=== PATIENT | male | born 1950 | race Caucasian/White ===

== ENCOUNTER → 2024-09-09 | Outpatient (CLI) | payer MEDICARE, SELFPAY ==
--- NOTE | 2024-09-09 12:56 | NEURO ---
NCS and/or EMG Patient Report Ordering Doctor: Addi Garcia DATE OF SERVICE: 09/09/24 Oc presents for electrodiagnostic testing of the lower limbs. He reports numbness and tingling in both feet. Electrodiagnostic findings: Right peroneal motor nerve demonstrates normal distal latency with reduced amplitude and reduced conduction velocity. Left peroneal motor nerve demonstrates normal distal latency with reduced amplitude and reduced conduction velocity. Tibial motor response could not be obtained bilaterally. Prolonged right and left peroneal F?wave. Prolonged H?reflex bilaterally. Sensory responses were not obtainable. Needle EMG testing was performed the lower limbs. Motor units of 1+ amplitude and duration noted bilaterally in the gastrocnemius. 1+ fibrillations are noted in left tibialis anterior. No denervation noted in lumbar paraspinals. Electrodiagnostic impression: This is an abnormal study in the lower limbs 1. 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 2. No electrodiagnostic evidence is noted for lumbosacral radiculopathy. Multi Select Codes Neurology Neurology Interp Codes: 17486-56 Musc test done w/n test comp (interp) (2) and 86818-06 Nrv cndj test 9-10 studies (interp)
== END | disposition home or self-care (01) ==
LOC: PSN 06:42
PROVIDERS: PCP Family Medicine; Referring Provider Family Medicine; Visit Provider Family Medicine
DX: R20.0 Anesthesia of skin (principal); R20.2 Paresthesia of skin
CPT/HCPCS: 95886; 95911

== ENCOUNTER 2025-01-13 13:53 | Emergency (ER) | payer MEDICARE, SELFPAY ==
[2025-01-13 13:53] VITALS: BP 151/77; PULSE 81; RESP 16; TEMP 36.7; O2SAT 98
--- NOTE | 2025-01-13 14:09 | EX.ED.DYSGE1 ---
HPI History of Present Illness Chief Complaint: Abd Pain PFSH PFSH Allergy/AdvReac Type Severity Reaction Status Date / Time loratadine (From Claritin) Allergy ITCING Verified 01/13/25 14:01 tramadol Allergy Abd Verified 01/13/25 14:01 cramps/diarrhea acetaminophen (From Tylenol) AdvReac OTHER Verified 01/13/25 14:01 aspartame AdvReac Other Verified 01/13/25 14:01 Beef Containing Products AdvReac Abd Verified 01/13/25 14:01 cramps/diarrhea quick AdvReac Diarrhea Verified 01/13/25 14:01 chlordiazepoxide (From AdvReac UNKNOWN Verified 01/13/25 14:01 Librium) corn syrup AdvReac UNKNOWN Verified 01/13/25 14:01 egg (eggs) AdvReac Abd Verified 01/13/25 14:01 cramps/diarrhea ibuprofen AdvReac Abd Verified 01/13/25 14:01 cramps/diarrhea losartan AdvReac Abd Verified 01/13/25 14:01 cramps/diarrhea naproxen AdvReac Abd Verified 01/13/25 14:01 cramps/diarrhea Penicillins (PCN) AdvReac UNKNOWN Verified 01/13/25 14:01 Pork/Porcine Containing AdvReac Abd Verified 01/13/25 14:01 Products cramps/diarrhea Social History Smoking Status: Never smoker EXAM Physical Exam Const Vital Signs: 01/13/25 13:53 01/13/25 15:53 Temperature 98.1 F Temperature Source Temporal Pulse Rate 81 77 Respiratory Rate 16 19 H Blood Pressure 151/77 H 131/59 H Blood Pressure Mean 101 83 Pulse Ox 98 98 Oxygen Delivery Method Room Air Room Air MDM MDM MDM Narrative Medical decision making narrative: HISTORY OF PRESENT ILLNESS: 74-year-old male presents with concern for abdominal pain bloating and flatulence. He states he has had 3 weeks of pain. Pain was worse 4 days ago. States he has abdominal pain bloating increased burping and flatulence. He notes nausea but no vomiting. Last bowel movement was this morning. Denies melena hematochezia. Notes history of 3 hernia surgeries. Denies urinary complaint such as urgency, frequency or dysuria. Denies any fevers. No chest pain or shortness of breath. REVIEW OF SYSTEMS: Pertinent positives: Abdominal pain, bloating and flatulence, nausea Pertinent negatives: Chest pain, shortness of breath, fever, vomiting, urinary symptoms PHYSICAL EXAM: Nursing triage notes reviewed, Vital signs reviewed Constitutional: please see the [facility] HENT: MMM Eyes: Pupils equal round and reactive to light, Extraocular muscles intact Neck: No stridor, no JVD, full neck ROM Lungs: Clear to auscultation, No wheezing or rales. No increased work of breathing, no conversational dyspnea, no accessory muscle use, no nasal flaring. No respiratory distress noted Heart: Regular rate and rhythm, No murmurs, No rubs and No gallops, 2+ distal pulses (radial, femoral, posterior tibial) in all extremities Abdomen: Soft, there is no tenderness, slight distention, rigidity, rebound or guarding, no obvious peritoneal signs, no palpable pulsatile abdominal masses, no auscultated abdominal bruit : No CVAT Extremities: No edema Neuro: No new focal neurological deficits, cranial nerves II through XII intact, 5/5 strength in all present extremities. Intact sensation to light touch in all present extremities, 2+ reflexes bilateral patella tendons. Skin: No rash or lesions noted MEDICAL DECISION MAKING: Chief Complaint: Abdominal pain, bloating and flatulence External records reviewed: Reviewed prior imaging studies Factors affecting care: none recorded in the chart. Per patient's report IBS Social determinants of health: none History obtained from others: none Consults: none [facility] Narrative: The patient was initially hemodynamically stable, afebrile, nontoxic-appearing. Abdominal exam overall benign however slightly distended consistent with patient's history of increased flatulence and burping. I considered the following differential diagnosis: AAA, small bowel obstruction, abdominal perforation, appendicitis, pancreatitis, hepatobiliary pathology (acute cholecystitis), mesenteric ischemia, pathology (ie nephrolithiasis, pyelonephritis). I obtained a broad lab and imaging workup to further elucidate the etiology of the patient's complaints. Initially treated the patient with 500 cc of normal saline, 4 mg IV morphine, 4 mg IV Zofran, 20 mg IM Bentyl ALL IMAGES (IF OBTAINED) HAVE BEEN PERSONALLY REVIEWED AND INTERPRETED BY MYSELF. CBC without leukocytosis, severe anemia, no thrombocytopenia. BMP with mild hyponatremia, h hypokalemia LFTs show no evidence of hepatobiliary pathology. Lipase is wnl indicating no pancreatic inflammation. Urinalysis shows no evidence of urinary inflammation suggestive of UTI CT scan abdomen pelvis shows no evidence of obvious acute abdominal surgical pathology Lactate is wnl indicating no end-organ hypoperfusion and/or hypoxia. The synthesis of the patient's history, physical exam, labs images suggest no acute life-limiting etiology. Unclear etiology however prompt GI and PCP follow-up was recommended. Strict return precautions were discussed. The patient electrolyte abnormalities are mild and not require ED treatment. Encouraged a more well-rounded diet including fresh fruits and vegetables as well as usual [place] diet to balance out any sodium issues. The patient and/or family, caregivers express understanding. The patient and/or family, caregivers agrees with the plan. Shared decision making: I will have a discussion with the patient and or visitors regarding risk/benefits of further testing or admission. They will be made aware of of the risk/benefits inherent in this decision they will be given the opportunity to voice understanding. Total critical care time today provided was at least 0 minutes. This excludes separately billable procedures. Critical care time (if documented) is secondary to the patient having high probability of clinically significant/life threatening deterioration in the patient's condition which required my urgent intervention. Impression: 1. Abdominal pain 2. Hyponatremia 3. Hypokalemia Dispo: Discharge home This note was generated with Freebeep[employer] dictation software. It may contain incorrect words, spelling, and punctuation that were not noted in review of the chart prior to signing. Lab Data Labs: Laboratory Results - last 24 hr 01/13/25 01/13/25 14:32 15:04 WBC 6.4 RBC 4.72 Hgb 14.4 Hct 39.8 L MCV 84.3 MCH 30.5 MCHC 36.2 H RDW Std Deviation 41.0 RDW Coeff of Fely 13.2 Plt Count 219 MPV 10.6 Immature Gran % (Auto) 0.300 Neut % (Auto) 68.1 Lymph % (Auto) 18.4 L [place] % (Auto) 9.9 Eos % (Auto) 2.2 Baso % (Auto) 1.1 H Absolute Neuts (auto) 4.3 Absolute Lymphs (auto) 1.17 Nucleated RBC % 0 Sodium 132 L Potassium 3.1 L Chloride 95 L Carbon Dioxide 25.6 Anion Gap 11 BUN 14 Creatinine 1.09 Estim Creat Clear Calc 71.93 Est GFR (MDRD) Non-Af 72 BUN/Creatinine Ratio 12.8 Glucose 89 Lactic Acid < 1.0 Calcium 8.7 Total Bilirubin 1.06 AST 26 ALT 13 Alkaline Phosphatase 91 Total Protein 6.5 Albumin 4.1 Globulin 2.3 Albumin/Globulin Ratio 1.8 Lipase 72 Urine Color Yellow Urine Clarity Clear Urine pH 7.0 Ur Specific [place] 1.005 Urine Protein 15 H Urine Glucose (UA) Normal Urine Ketones 5 H Urine Occult Blood 10 H Urine Nitrite Negative Urine Bilirubin Negative Urine Urobilinogen Normal Ur Leukocyte Esterase Negative Urine RBC 0 SEEN Urine WBC 0 SEEN Ur Squamous Epith Cells 0 SEEN Urine Bacteria 0 SEEN Urine Mucus 0 SEEN Radiography Diagnostic Testing: Clinical Impression(s) from Imaging Studies Abdomen/Pelvis CT 01/13/25 14:45 IMPRESSION: No acute process in the abdomen or pelvis. Colonic diverticulosis without diverticulitis. Reading [facility] Discharge Plan Triage Chief Complaint: Abd Pain ED Provider: Ruben Helms Dx/Rx/DC Orders Primary Care Provider: Addi Garcia Referrals: Addi Garcia MD [Primary Care Provider] - Print Language: Citizen [place]
[2025-01-13] MEDS: Morphine 4 MG/ML Syringe IV (14:29)
[2025-01-13] MEDS: Ondansetron 4 MG/2 ML Vial IV (14:29)
[2025-01-13] MEDS: 0.9% Normal Saline (500mL Bag) 500 ML 999 ML IV (14:30)
[2025-01-13] MEDS: Dicyclomine 20 MG/2 ML Vial IM (14:31)
--- NOTE | 2025-01-13 14:45 | CT_ITS ---
EXAM: ABDOMEN/PELVIS W IV CONT ONLY CLINICAL HISTORY: ABDOMINAL PAIN, BLOATING COMPARISON: None. TECHNIQUE: Helical CT images of the abdomen and pelvis were performed utilizing routine protocol with IV contrastintravenous contrast material. Multiplanar reformations were obtained. oral contrast Dose reduction techniques were used including intermediate exposure control (AEC),iterative reconstruction technique, and/or mA and/or KV dose adjustments based on patient's size. FINDINGS: Lung bases: Linear opacities in the lung bases, compatible with atelectasis and scarring. Liver: Mild diffuse hepatic steatosis. Scattered low-attenuation lesions, likely simple cysts. The largest in the right hepatic lobe measures 14 mm. Bile ducts: No intrahepatic ductal dilation. Gallbladder: No calcified gallstones. No gallbladder wall thickening or pericholecystic fluid. Spleen: Within normal limits. Pancreas: Within normal limits Adrenal glands: Within normal limits Kidneys/Ureters: Symmetric bilateral renal enhancement. No hydronephrosis or renal calculi. No hydroureter. Bladder: Within normal limits Reproductive: Mild prostatomegaly. Lymph nodes: No adenopathy. Bowel: Small hiatal hernia. No bowel dilation or wall thickening. Colonic diverticulosis without diverticulitis. Moderate colonic stool. Appendix is not visualized. Peritoneum: No free air, ascites, or fluid collection. Retroperitoneum: Within normal limits. Abdominal wall: Within normal limits. Bones: No significant multilevel spondylosis. Maintained vertebral body heights. CT/Abdomen/Pelvis W IV Cont ONLY IMPRESSION: No acute process in the abdomen or pelvis. Colonic diverticulosis without diverticulitis. Reading Location: [facility]
[2025-01-13 14:51] LABS: Absolute Lymphocyte Count 1.17 X10^3/uL (0.83-4.51); Absolute Neutrophil Count 4.3 X10^3/uL (2.0-7.7); Basophil# 0.07 X10^3/uL; Basophil% 1.1 % (0-1); Eosinophil# 0.14 X10^3/uL; Eosinophils% 2.2 % (0-5); Hematocrit 39.8 % (40-54); Hemoglobin 14.4 g/dL (13.0-16.5); Lymphocyte # 1.17 X10^3/ul (0.83-4.51); Lymphocyte % 18.4 % (19-41); Mean Corp Hgb Conc 36.2 g/dL (32-36); Mean Corpuscular Hgb 30.5 pg (27.0-32.0); Mean Corpuscular Volume 84.3 fL (80-94); Mean Platelet Vol. 10.6 fl (6.2-12.0); Monocyte# 0.63 X10^3/uL; Monocyte% 9.9 % (0-10); NRBC Flagged by Analyzer 0 % (0-5); Neutrophil # 4.34 X10^3/uL (2.7-7.7); Neutrophil % 68.1 % (47-70); Platelet Count 219 K/mm3 (150-450); RBC Distribution Width CV 13.2 % (11.6-14.6); Red Blood Count 4.72 M/mm3 (4.6-6.2); White Blood Count 6.4 K/mm3 (4.4-11.0)
[2025-01-13 15:12] LABS: Bacteria 0 SEEN /hpf (None Seen); Mucous, Urine 0 SEEN /hpf (<or=2+); Squamous Epithelial Cells - UA 0 SEEN /hpf (0-5); White Blood Cells 0 SEEN /hpf (0-5)
[2025-01-13 15:18] LABS: Color, Urine Yellow (Yellow); Glucose, Dipstick Normal (Normal); Ketone-Dipstick 5 mg/dl (Negative); Leukocyte Esterase-Dipstick Negative /ul (Negative); Nitrite-Dipstick Negative (Negative); Occult Blood-Urine 10 /ul (Negative); Protein-Dipstick 15 mg/dl (Negative); Specific Gravity, Urine 1.005 (1.002-1.030); Urine Bilirubin Dipstick Negative (Negative); Urine Clarity Clear (Clear); Urine Urobilinogen Normal (Normal)
[2025-01-13 15:28] LABS: Red Blood Cells-Urine 0 SEEN /hpf (0-5)
[2025-01-13 15:53] VITALS: BP 131/59; PULSE 77; RESP 19; O2SAT 98
[2025-01-13 15:54] LABS: ALB/GLOB Ratio 1.8 RATIO (0.9-2.4); AST(SGOT) 26 U/L (<=37); Alanine Aminotransfer ALT/SGPT 13 U/L (<=46); Albumin, Serum 4.1 g/dL (3.4-4.8); Alkaline Phosphatase 91 U/L (40-129); Anion Gap 11 (5-15); BUN 14 mg/dL (4-19); BUN/Creat Ratio 12.8 RATIO (10-20); Calcium,Total 8.7 mg/dL (7.6-11.0); Carbon Dioxide 25.6 mmol/L (21.0-32.0); Chloride 95 mmol/L (98-108); Creatinine, Serum 1.09 mg/dL (0.70-1.20); EST Glomerular Filtration Rate 72 (>60); Estimated Creatinine Clearance 71.93 ml/min (50-250); Globulin 2.3 g/dL (2.2-4.2); Glucose 89 mg/dL (70-99); Lipase 72 U/L (13-75); Potassium 3.1 mmol/L (3.3-5.1); Protein, Total 6.5 g/dL (5.9-8.4); Sodium Level 132 mmol/L (133-145); Total Bilirubin 1.06 mg/dL (0.00-1.30)
[2025-01-13 15:56] LABS: Lactic Acid < 1.0 mmol/L (0.0-2.0)
[2025-01-13 16:44] VITALS: BP 126/53; PULSE 59; RESP 18; TEMP 36.6; O2SAT 97
--- NOTE | 2025-01-13 16:46 | ED.RN ---
Pt aware that he is not able to drive until 630 due to medications that were given. pt would like to wait in the waiting room until 630 then leave.
== END 2025-01-13 16:58 | disposition home or self-care (01) ==
PROVIDERS: Emergency Provider Emergency Medicine; PCP Family Medicine; Referring Provider Emergency Medicine; Visit Provider Emergency Medicine
DX: R10.9 Unspecified abdominal pain (principal); E87.1 Hypo-osmolality and hyponatremia; E87.6 Hypokalemia
CPT/HCPCS: 74177; 80053; 81001; 83605; 83690; 85025; 96361; 96372; 96374; 96375; 99283; Q9967; A4216; J2405